=== PATIENT | female | born 1935 | race Native Hawaiian/Other Pacific Islander ===

== ENCOUNTER 2021-09-13 17:27 | Emergency (ER) | payer OTHER ==
[~2021-09-13] VITALS: Ht 157.5 cm; Wt 42.2 kg
[2021-09-13 18:04] LABS: PLATELET COUNT 227 K/uL (152-353)
[2021-09-13 19:20] VITALS: BP 157/73; TEMP 98
[2021-09-14] MEDS ORDERED: CLOPIDOGREL75 MG PO (09:49)
[2021-09-14] MEDS ORDERED: ALPRAZOLAM PO (09:55)
[2021-09-14] MEDS ORDERED: TYLENOL325 MG PO (09:58)
[2021-09-14] MEDS ORDERED: CARV3.12 PO (10:21)
[2021-09-14] MEDS ORDERED: DOK100 MG PO (10:22)
[2021-09-14] MEDS ORDERED: MULTIVITAMIN/MINERAL PO (10:25)
[2021-09-14] MEDS ORDERED: PAROXETINE PO (10:26)
[2021-09-14] MEDS ORDERED: PANTOPRAZOLE SO40 M3 PO (10:45)
[2021-09-14] MEDS ORDERED: VALPROIC A250 MG/5 M PO (10:47)
[2021-09-14] MEDS ORDERED: TRAMADOL HYDROC50 MG PO (11:04)
== END 2021-09-13 19:20 | disposition still patient (30) ==
LOC: ED 17:27
PROVIDERS: Emergency Medicine
DX: F03.91 Unspecified dementia, unspecified severity, with behavioral disturbance (principal); Z11.52 Encounter for screening for COVID-19; Z04.6 Encounter for general psychiatric examination, requested by authority
CPT/HCPCS: 80053; 85027; 87635; 93005; 99283; U0003

== ENCOUNTER 2021-10-17 17:15 | Emergency (ER) | payer OTHER ==
[~2021-10-17] VITALS: Ht 160 cm; Wt 36.7 kg
[2021-10-17 17:15] VITALS: BP 162/62; TEMP 97.8
[~2021-10-17 17:15] MED LIST: ALPRAZOLAM PO; CARV3.12 PO; CLON0.5T36 PO; CLOPIDOGREL75 MG PO; DIVALPROEX500 MG PO; DOK100 MG PO; ESCI10TA PO; MULTIVITAMIN/MINERAL PO; PANTOPRAZOLE SO40 M3 PO; PAROXETINE PO; QUET25TA2 PO; TRAMADOL HYDROC50 MG PO; TRAZ50TA36 PO; TYLENOL325 MG PO; VALPROIC A250 MG/5 M PO
[2021-10-17 17:44] LABS: PLATELET COUNT 198 K/uL (152-353)
[2021-10-18] MEDS ORDERED: VALPROIC A250 MG/5 M PO (09:47)
== END 2021-10-17 18:40 | disposition still patient (30) ==
LOC: ED 17:15
PROVIDERS: Emergency Medicine
DX: R46.89 Other symptoms and signs involving appearance and behavior (principal); I50.9 Heart failure, unspecified; Z11.52 Encounter for screening for COVID-19; Z04.6 Encounter for general psychiatric examination, requested by authority
CPT/HCPCS: 80053; 81000; 85027; 87635; 99283; U0003

== ENCOUNTER 2021-11-14 21:37 | Emergency (ER) | payer OTHER ==
[~2021-11-14] VITALS: Ht 160 cm; Wt 50.3 kg
[2021-11-14 22:12] LABS: PLATELET COUNT 250 K/uL (152-353)
[2021-11-14 22:18] LABS: POTASSIUM 3.3 mmol/L (3.6-5.2)
[2021-11-14 22:55] VITALS: BP 140/58; TEMP 98.1
[2021-11-15] MEDS ORDERED: ESCI10TA PO (00:42)
[2021-11-15] MEDS ORDERED: MAGNSUS68 PO (00:51)
[2021-11-15] MEDS ORDERED: QUET25TA2 PO (00:52)
== END 2021-11-14 22:55 | disposition still patient (30) ==
LOC: ED 21:37
PROVIDERS: Emergency Medicine
DX: R46.89 Other symptoms and signs involving appearance and behavior (principal); N39.0 Urinary tract infection, site not specified; Z11.52 Encounter for screening for COVID-19; Z04.6 Encounter for general psychiatric examination, requested by authority
CPT/HCPCS: 80053; 81000; 85027; 87086; 87088; 87635; 93005; 99283; U0003